=== PATIENT | female | born 1990 | race Caucasian/White ===

== ENCOUNTER 2021-05-06 14:43 | Outpatient (CLI) | payer OTHER ==
[~2021-05-06] VITALS: Ht 182.9 cm; Wt 87.7 kg
--- NOTE | 2021-05-06 15:15 | NUR ---
Pt ambulatory onto unit. complaining of gush of fluid in bathtub. Pt not leaking fluid at this time. Pt denies regular contractions, decreased movement, or vaginal bleeding. FHR monitor/TOCO applied. Vital signs WNL. SVE by this RN 2-3/80/-2. Amniotrace negative.
[2021-05-06] MEDS ORDERED: BUSPAR10 MG PO (15:22)
[2021-05-06 15:30] VITALS: BP 115/71; PULSE 76; TEMP 98.2
[2021-05-06 16:00] VITALS: BP 102/62; PULSE 66
[2021-05-06 16:32] VITALS: BP 102/62; PULSE 73
== END 2021-05-06 16:45 | disposition home or self-care (01) ==
LOC: LDRO 14:43
DX: O42.02 Full-term premature rupture of membranes, onset of labor within 24 hours of rupture (principal); Z3A.37 37 weeks gestation of pregnancy

== ENCOUNTER 2021-05-18 06:15 | Inpatient (IN) | payer OTHER ==
[2021-05-18] VITALS (30 sets, daily range): BP systolic 92–126; BP diastolic 55–76; PULSE 59–85; TEMP 97–98.1
[~2021-05-18] VITALS: Ht 182.9 cm; Wt 86.5 kg
[~2021-05-18 06:15] MED LIST: BUSPAR10 MG PO
--- NOTE | 2021-05-18 06:25 | NUR ---
0625 - PATIENT AMBULATORY TO LDR4 WITH SPOUSE. WEIGHT OBTAINED IN ROUTE TO ROOM. PATIENT AND SPOUSE ORIENTED TO ROOM. PLAN OF CARE FOR PITOCIN INDUCTION REVIEWED AND PATIENT AGREEABLE. 0630 - PATIENT CHANGES INTO GOWN. 0633 - PATIENT PLACED ON EFM AND VS OBTAINED - SEE FLOWSHEET. 0640 - IV SITE STARTED AND LABS OBTAINED ORDERED. LR INITIATED ORDERED. 0650 - ASSESSMENTS COMPLETED. CONSENTS REVIEWED WITH PATIENT AND SIGNED. CARE ONGOING.
[2021-05-18 06:58] LABS: BASO % 0.2 % (0.0-2.0); EOS # 0.1 K/mm3 (0.0-0.7); EOS % 0.5 % (0.0-4.0); GRAN # 7.8 K/mm3 (1.4-6.5); GRAN % 72.8 % (42.2-75.2); HEMOGLOBIN 11.8 g/dl (12.5-16.0); LYMPH # 1.7 K/mm3 (1.2-3.4); LYMPH % 15.7 % (20.0-51.0); MEAN CELL VOLUME 95 fl (80.0-100.0); MEAN CORPUSCULAR HEMOGLOBIN 32 pg (27-31); MEAN CORPUSCULAR HGB CONC 33 g/dl (33.0-37.0); MEAN PLATELET VOLUME 9.8 fl (7.4-10.4); MONO # 1.1 K/mm3 (0.1-0.6); MONO % 10.1 % (1.7-9.3); PLATELET COUNT 232 K/mm3 (130-400); RED BLOOD COUNT 3.74 M/mm3 (4.10-5.30); REDCELL DISTRIBUTION WIDTH-CV 13.9 % (11.5-14.5)
[2021-05-18 06:59] LABS: HEMATOCRIT 35.5 % (37.0-47.0)
--- NOTE | 2021-05-18 08:38 | NUR ---
0838 - MD JEANETTE AT BEDSIDE. PLAN OF CARE DISCUSSED WITH PATIENT AND SPOUSE. 0839 - SVE PERFORMED BY MD JEANETTE. /1. 0841 - SROM PERFORMED BY MD JEANETTE. CLEAR FLUID NOTED. 0842 - PATIENT EDUCATED ON ACTIVITY RESTRICTION FOR NEXT 20-30 MINUTES AFTER AROM. CARE ONGOING.
--- NOTE | 2021-05-18 09:24 | NUR ---
0924 - JARED MAI AT BEDSIDE FOR EPIDURAL PLACEMENT. TIMEOUT COMPLETED. 0935 - TEST DOSE GIVEN. EFM AND TOCO TRACING POOR DUE TO MATERNAL POSITION FOR EPIDURAL PLACEMENT. MONITOR ADJUSTED AFTER PROCEDURE COMPLETE. CARE ONGOING.
--- NOTE | 2021-05-18 11:30 | NUR ---
1132 - PLAN OF CARE DISCUSSED. SVE PERFORMED BY TERRENCE DARDEN. PATIENT COMPLETE/+1. PUSHING INSTRUCTIONS DISCUSSED. TEST PUSH WITH GOOD MATERNAL EFFORT. 1138 - MD JEANETTE NOTIFIED OF PATIENT COMPLETE/+1. 1145 - MAJOR D/C. 1150 - PATIENT PUSHING WITH CONTRACTIONS WITH GOOD MATERNAL EFFORT. 1156 - MD JEANETTE AT BEDSIDE. PLAN OF CARE DISCUSSED. PATIENT CONTINUES TO PUSH WITH CONTRACTIONS. 1207 - VIABLE DELIVERED SPONTANEOUSLY. HEAD FOLLOWED BY BODY. CARE OF ASSUMED BY TERRENCE YORK FOR NURSERY. 1213 - SPONTANEOUS DELIVERY OF INTACT PLACENTA. FUNDAL MASSAGE PERFORMED BY MD JEANETTE. PITOCIN BOLUS INITIATED ORDERED. 1215 - REPAIR OF 1ST DEGREE TEAR AND BILATERAL LABIAL TEARS PERFORMED BY MD JEANETTE. FUNDAL MASSAGE PERFORMED BY TERRENCE DARDEN. FUNDUS FIRM. BLEEDING WNL. JERED CARE PERFORMED, PATIENT REPOSITIONED AND ICE PACK APPLIED TO PERINEUM. CARE ONGOING.
[2021-05-19 00:52] VITALS: BP 97/53; PULSE 74
[2021-05-19 06:50] VITALS: BP 96/59; PULSE 61; TEMP 97.3
[2021-05-19] MEDS ORDERED: IBU600 MG PO (08:17)
--- NOTE | 2021-05-19 09:32 | NUR ---
Initial visit; Patient thanked [employer]x Interaction Designer for offering congratulations and God's blessings for the of her son. Ux Interaction Designer thanked patient for choosing [facility].
--- NOTE | 2021-05-19 14:05 | NUR ---
1340DISCHARGE INSTRUCTIONS REVIEWED WITH PATIENT. PATIENT VERBALIZED UNDERSTANDING. WILL NOTIFY THIS RN WHEN READY TO LEAVE. 1405ALL PERSONAL BELONGINGS GATHERED FROM PATIENT ROOM. PATIENT LEFT AMBULATORY AND IN NO APPARENT DISTRESS. PATIENT ACCOMPANIED BY SPOUSE AND Nicole TEAGUE RN.
== END 2021-05-19 14:05 | disposition home or self-care (01) | DRG 807 ==
LOC: OB 06:15 → LDR 06:15 → OB 15:15
PROVIDERS: ADMIT Obstetrics & Gynecology
PROC: 10E0XZZ Delivery of Products of Conception, External Approach (ICD-10-PCS; principal; 2021-05-18)
PROC: 0HQ9XZZ Repair Perineum Skin, External Approach (ICD-10-PCS; 2021-05-18)
PROC: 10907ZC Drainage of Amniotic Fluid, Therapeutic from Products of Conception, Via Natural or Artificial Opening (ICD-10-PCS; 2021-05-18)
PROC: 3E033VJ Introduction of Other Hormone into Peripheral Vein, Percutaneous Approach (ICD-10-PCS; 2021-05-18)
DX: O99.344 Other mental disorders complicating childbirth (principal); Z37.0 Single live birth; F90.9 Attention-deficit hyperactivity disorder, unspecified type; O70.0 First degree perineal laceration during delivery; O43.893 Other placental disorders, third trimester; Z3A.39 39 weeks gestation of pregnancy
CPT/HCPCS: J2405; J2590; J7120